=== PATIENT | male | born 1975 | race American Indian/Alaskan Native ===

== ENCOUNTER 2020-07-23 01:55 | Emergency (ER) | payer SELFPAY ==
[2020-07-23 02:56] VITALS: BP 124/88
[2020-07-23] MEDS ORDERED: IBUPROFEN 600 MG TAB PO ONE (06:33)
[2020-07-23] MEDS ORDERED: ACETAMINOPHEN 500 MG TAB PO ONE (06:33)
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
[2020-07-23 07:14] LABS: Basophils % (Auto) 0.3 % (0.0-1.8); Eosinophils # (Auto) 0.2 K/mm3 (0.0-0.4); Eosinophils % (Auto) 2.5 % (0.0-4.3); Hematocrit 23.5 % (35.5-45.6); Hemoglobin 8.5 gm/dl (11.8-15.2); Lymphocytes # (Auto) 1.9 K/mm3 (1.2-5.4); Lymphocytes % (Auto) 22.7 % (13.4-35.0); Mean Corpuscular HGB Conc 36 % (32-34); Mean Corpuscular Volume 92 fl (84-94); Monocytes # (Auto) 0.7 K/mm3 (0.0-0.8); Monocytes % (Auto) 8.8 % (0.0-7.3); Platelet Count 136 K/mm3 (140-440); Red Blood Count 2.57 M/mm3 (3.65-5.03); Red Cell Distribution Width 14.4 % (13.2-15.2)
[2020-07-23 07:39] LABS: Alanine Aminotransferase 50 units/L (7-56); Albumin 3.3 g/dL (3.9-5); BUN/Creatinine Ratio 10; Blood Urea Nitrogen 9 mg/dL (9-20); Calcium 9.1 mg/dL (8.4-10.2); Hemolysis Index 4
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
--- NOTE | 2020-07-23 08:40 | Ultrasound Report ---
. ULTRASOUND SCROTUM INDICATION: Pain, swollen. COMPARISON None available. FINDINGS -- RIGHT TESTIS: Size: 3.9 x 2.8 x 2.7 cm. Echotexture: Normal. Color Doppler Flow: Normal. Lesions: None. EPIDIDYMIS: Size: Normal. Echotexture: Normal. Color Doppler Flow: Normal. Lesions: None. Hydrocele: None. Varicocele: None. Additional Findings: None. FINDINGS -- LEFT TESTIS: Size: 3.9 x 2.7 x 2.5 cm. Echotexture: Normal. Color Doppler Flow: Normal. Lesions: None. EPIDIDYMIS: Size: Normal. Echotexture: Normal. Color Doppler Flow: Normal. Lesions: None. Hydrocele: None. Varicocele: None. Additional Findings: None IMPRESSION: 1. No sonographic abnormality of the scrotum. Signer Name: Yousuf Almeida MD Signed: 07/23/2020 8:36 AM Workstation Name: [id number]
[2020-07-23 08:42] LABS: Bilirubin,Urine NEG (Negative); Blood,Urine NEG (Negative); Color,Urine Yellow (Yellow); Mucus,Urine FEW /HPF
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
== END 2020-07-23 12:05 | disposition home or self-care (01) ==
LOC: ED 01:55
DX: S32.302A Unspecified fracture of left ilium, initial encounter for closed fracture (principal); N50.89 Other specified disorders of the male genital organs; W34.00XA Accidental discharge from unspecified firearms or gun, initial encounter; Y93.89 Activity, other specified; Y92.89 Other specified places as the place of occurrence of the external cause; Y99.8 Other external cause status
CPT/HCPCS: 36415; 74176; 80053; 81001; 85025; 93975